=== PATIENT | male | born 1975 | race Caucasian/White ===

== ENCOUNTER 2023-02-05 04:02 | Emergency (ER) | payer SELFPAY ==
[~2023-02-05] VITALS: Ht 182.9 cm; Wt 100.0 kg
[2023-02-05 04:10] VITALS: BP 157/96
--- NOTE | 2023-02-05 05:44 | ED Fall/Injury ---
General Chief Complaint: Hip/Pelvic Problems Stated Complaint: FALL-WALKING,RT HIP PX Nursing Triage Note: Pt presents with c/o R hip pain after a fall around 0200 this morning. Pt states he was outside walking when he fell, unsure of the cause of his fall, he reports his feet got tangled up, he may have been dizzy. Pt states he was walking on an uneven sidewalk. Pt reports he landed on his bottom, and felt immediate R hip/groin pain. Pt was able to get up and ambulate, states pain has been increasing ever since. Pt denies hitting head, denies any other injury. Source: patient ([employer]IAN) History of Present Illness Date Seen by Provider: Feb 05, 2023 Time Seen by Provider: 04:15 Initial Comments PT WALKS INTO ER ON HIS OWN PT IS HOMELESS, "JUST MOVED HERE" FROM [place], [place] ( [facility]AR [facility]) --HE WAS HOMELESS THERE ALSO PT STATES HE WAS "JUST WALKING" AROUND 0200 THIS AM AND STATES HE "JUST FELL" AND LANDED ON HIS BUTTOCKS AND FELT IMMEDIATE PAIN IN RIGHT HIP/GROIN AREA HE WAS ABLE TO GET BACK UP AND WALK, AND WALKED AROUND "FOR AWHILE" AND FELT FINE. HE STATES THEN IT STARTED HURTING, AND HE WAS WALKING BY [employer], AND SOMEONE DROVE BY AND STOPPED, AND BROUGHT HIM HERE TO ER. HE DID NOT HIT HIS HEAD OR HAVE LOSS OF CONSCIOUSNESS DENIES PARESTHESIAS OR MOTOR DEFICITS NO LOSS OF BOWEL OR BLADDER CONTROL OR SADDLE ANESTHESIA DENIES ANY MEDICAL PROBLEMS HE HAS HAD PRIOR APPENDECTOMY. NO OTHER SURGERIES PCP: NONE Allergies and Home Medications Allergies Coded Allergies: Penicillins (Verified Allergy, Unknown, 02/05/23) Review of Systems Review of Systems Constitutional: no symptoms reported Eyes: No Symptoms Reported Ears, Nose, Mouth, Throat: no symptoms reported Respiratory: no symptoms reported Cardiovascular: no symptoms reported Gastrointestinal: no symptoms reported Genitourinary: no symptoms reported Musculoskeletal: see HPI Skin: no symptoms reported Psychiatric/Neurological: No Symptoms Reported Past [id number]-[id number]-[id number] Hx Immunizations Up To Date Influenza Vaccine Up-to-Date: Yes; Up-to-Date Past Medical History Surgeries: Yes Appendectomy Respiratory: No Cardiac: No Neurological: No Genitourinary: No Gastrointestinal: No Musculoskeletal: No Endocrine: No HEENT: No Psychosocial: No Integumentary: No Blood Disorders: No Physical Exam Vital Signs Vital Signs - First Documented 02/05/23 04:10 Temp 36.2 Pulse 105 Resp 16 B/P (MAP) 157/96 (116) Capillary Refill : Less Than 3 Seconds Height, Weight, BMI Height: '" Weight: lbs. oz. kg; 29.00 BMI Method: General Appearance: WD/WN, no apparent distress, other (FILTHY AND EXTREMELY MALODOROUS, WALKS WITH SLIGHT LIMP, BUT GAIT IS FAIRLY STEADY OTHERWISE) HEENT: PERRL/EOMI, other (EXTREMELY POOR DENTITION, MULTIPLE MISSING TEETH AND REMAINING TEETH DECAYED DOWN TO GUMS. ) Neck: non-tender, full range of motion Cardiovascular: regular rate, rhythm Respiratory: chest non-tender, normal breath sounds Peripheral Pulses: 1+ Dorsalis Pedis (R), 1+ Left Dors-Pedis (L), 1+ Radial Pulses (R), 1+ Radial Pulses (L) Gastrointestinal: non tender, soft Back: no CVA tenderness, other (MILD LOWER BACK TENDERNESS. ) Extremities: normal capillary refill, other (MILD RIGHT HIP / GROIN) Progress/Results/Core Measures Results/Orders My Orders Orders - LUX LANIER DO Ct Lumbar Spine Wo (02/05/23 04:21) Pelvis With Right Hip 2-3views (02/05/23 04:21) Ct Pelvis Wo (02/05/23 04:21) Vital Signs/I&O 02/05/23 04:10 Temp 36.2 Pulse 105 Resp 16 B/P (MAP) 157/96 (116) Blood Pressure Mean: 116 Departure Impression Primary Impression: SELF REPORTED FALL Additional Impressions: RIGHT HIP AND GROIN PAIN Low back pain Disposition: 01 HOME, SELF-CARE Condition: Stable Departure-Patient Inst. Decision time for Depature: 05:41 Referrals: NO,LOCAL PHYSICIAN (PCP/Family) Primary Care Physician Patient Instructions: Hip Pain (DC), Low Back Pain ED, Preventing falls in adults Add. Discharge Instructions: TYLENOL 1 GRAM 4 TIMES A DAY FOR PAIN MOTRIN 800 MG 4 TIMES A DAY FOR PAIN ACTIVITIES TOLERATED FOLLOW UP WITH OF CHOICE IN 1 WEEK IF NO BETTER All discharge instructions reviewed with patient and/or family. Voiced understanding. LUX LANIER DO Feb 05, 2023 05:44
--- NOTE | 2023-02-05 06:37 | Diagnostic Imaging Report ---
PROCEDURE: CT lumbar spine without contrast. TECHNIQUE: Multiple contiguous axial images were obtained through the lumbar spine without the use of intravenous contrast. Sagittal and coronal reformations were then performed. Auto Exposure Controls were utilized during the CT exam to meet ALARA standards for radiation dose reduction. INDICATION: Low back pain. Right hip pain. No comparisons available. FINDINGS: Alignment of the lumbar spine demonstrates a very slight degenerative retrolisthesis of L4 on 5. Alignment is otherwise normal. The vertebral body heights are maintained. The facets are normally aligned. There is no facet joint or disc space widening. There is no pars defect. There are no findings of an acute fracture. There is no suspicious marrow replacing lesion. By CT imaging there appears to be moderate narrowing of the central canal at L4-L5 due to disc bulging, facet hypertrophy and ligamentous thickening. There is also moderate narrowing of the lateral recesses. There additionally is mild to moderate narrowing of both neural foramen at L4-L5 and L5-S1 levels. The visualized bones of the pelvis demonstrate no acute process. There is no free fluid. There are some calcifications within a normal caliber aorta. The kidneys are nonobstructed. Note is made of hepatic steatosis. IMPRESSION: 1. No CT findings of an acute lumbar fracture or acute osseous abnormality. 2. Background degenerative features within the lumbar spine most advanced at L4-L5 as described. 3. I agree with the preliminary [facility] report. Dictated by: Dictated on workstation # [id number]
--- NOTE | 2023-02-05 06:38 | Diagnostic Imaging Report ---
PROCEDURE: CT pelvis without contrast. TECHNIQUE: Multiple contiguous axial images were obtained through the pelvis without the use of intravenous contrast. Sagittal and coronal reformations were performed. Auto Exposure Controls were utilized during the CT exam to meet ALARA standards for radiation dose reduction. INDICATION: Fall. Low back and right hip pain. COMPARISON: CT lumbar spine performed the same day and the pelvic radiographs from the same day. FINDINGS: There are no CT findings of an acute osseous abnormality within the pelvis. There is no hip dislocation. There is no pelvic diastases. Pelvic ring is intact. No sacral fracture is identified. There is no proximal femoral fracture or evidence of a large hip joint effusion. The intrapelvic contents demonstrate no findings of focal inflammation or free fluid. There is no adenopathy. The visualized loops of bowel are normal in caliber. The bladder is nondistended. There are mild atherosclerotic calcifications within a normal caliber aorta. IMPRESSION: 1. No CT evidence of a pelvic fracture or acute osseous abnormality. 2. Intrapelvic contents demonstrate no findings of an inflammatory or obstructive process. 3. I agree with the preliminary [facility] report. Dictated by: Dictated on workstation # [id number]
--- NOTE | 2023-02-05 06:39 | Diagnostic Imaging Report ---
INDICATION: Fall. Low back and right hip pain. Findings: These 2 views of the pelvis demonstrate no findings of hip dislocation or pelvic diastases. Pelvic ring is intact. There is no proximal femoral fracture. Femoral head maintains normal morphology without evidence of collapse. There are [id number] osteoarthritic changes within the hips. IMPRESSION: Bilateral hip osteoarthritic changes without findings of fracture, dislocation or pelvic diastases. There are no findings of osteonecrosis. Dictated by: Dictated on workstation # [id number]
== END 2023-02-05 05:49 | disposition home or self-care (01) ==
LOC: EDUNIT# 04:02 → ER 04:09
DX: M25.551 Pain in right hip (principal); M54.50 Low back pain, unspecified; R10.30 Lower abdominal pain, unspecified; K02.9 Dental caries, unspecified; W18.30XA Fall on same level, unspecified, initial encounter; Y93.01 Activity, walking, marching and hiking; Y92.480 Sidewalk as the place of occurrence of the external cause
CPT/HCPCS: 72131; 72192